=== PATIENT | male | born 1985 | race American Indian/Alaskan Native ===

== ENCOUNTER 2019-03-28 07:57 | Emergency (ER) | payer SELFPAY ==
[2019-03-28 08:14] VITALS: BP 106/74
--- NOTE | 2019-03-28 08:27 | XRay Report ---
Left wrist, 2 views INDICATION: Pain following injury yesterday FINDINGS: The joint space is maintained. There is no fracture or dislocation. No spurring or arthriti c change. No bone lesion or periostitis. No significant abnormality. IMPRESSION: Negative study Signer Name: Jason Rogel MD Signed: 03/28/2019 8:23 AM Workstation Name: [id number]
[2019-03-28] MEDS ORDERED: ROCEPHIN IM ONE (08:32)
[2019-03-28] MEDS ORDERED: ZITHROMAX PO ONE (08:32)
[2019-03-28] MEDS ORDERED: XYLOCAINE 1% MPF 5 mL INFILTRATI ONE (08:32)
--- NOTE | 2019-03-28 08:37 | Emergency Department Report ---
HPI - General Chief Complaint: Extremity Injury, Upper Time Seen by Provider: 03/28/19 08:15 - HPI HPI: 33-year-old -[place] male presents to the emergency department with 2 complaints. First, the patient fell on his left wrist yesterday while playing basketball. He has been having pain to the wrist and distal forearm. He used some ice and then ICY hot. He says that there is no restriction to range of motion but he has discomfort. He is right-hand dominant. Secondly, the patient has been having a few days of some penile discharge. He denies any burning with urination or fever or general lesions. He says that his significant other was positive for some type of "bacteria." ED Past Medical Hx - Past Medical History Previous Medical History?: No - Surgical History Past Surgical History?: No - Social History Smoking Status: Never Smoker Substance Use Type: None - Medications Home Medications: Home Medications Medication Instructions Recorded Confirmed Last Taken Type Ibuprofen [Motrin 800 MG tab] 800 mg PO Q8HR PRN #20 tablet 03/28/19 Unknown Rx ED Review of Systems ROS: Stated complaint: L WRIST/DISCHARGE Other details as noted in HPI Comment: All other systems reviewed and negative Constitutional: denies: chills, fever Gastrointestinal: denies: abdominal pain Genitourinary: discharge. denies: dysuria, testicular pain Musculoskeletal: arthralgia. denies: joint swelling Skin: denies: rash, lesions Neurological: denies: numbness, paresthesias Physical Exam - Physical Exam Vital Signs: Vital Signs 03/28/19 08:02 Temperature 97.7 F Pulse Rate 67 Respiratory 16 Rate Blood Pressure 106/74 O2 Sat by Pulse 98 Oximetry Physical Exam: GENERAL: The patient is well-developed well-nourished. HENT: Normocephalic. Atraumatic. Patient has moist mucous membranes. EYES: Extraocular motions are intact. NECK: Supple. Trachea is midline. ABDOMEN: There is no abdominal distention. SKIN: Skin is warm and dry. NEURO: The patient is awake, alert, and oriented. The patient is cooperative. The patient has no focal neurologic deficits. Normal speech. MUSCULOSKELETAL: There is some tenderness to palpation to the left wrist and distal forearm but no obvious deformity. There is no limitation range of motion. Radial pulse +2 over 4 to the affected left wrist. : Deferred ED Course Vital Signs 03/28/19 08:02 Temperature 97.7 F Pulse Rate 67 Respiratory 16 Rate Blood Pressure 106/74 O2 Sat by Pulse 98 Oximetry ED Medical Decision Making - Radiology Data Radiology results: image reviewed interpreted by me: X-ray of the left wrist does not show any fracture, dislocation or any acute process. - Medical Decision Making Regarding the patient's wrist pain, x-ray was done that does not show any fracture, dislocation, or any acute process. Will be placed in a wrist splint and given a referral for orthopedists. Regarding the penile discharge, there seems to be some exposure to some type of STD or bacterial infection and the patient has active discharge. He will be treated empirically with Rocephin and azithromycin. Discussed safe sex p ractices and avoiding any sexual contact for at least one week after treated. He will return to the emergency Department with any worsening of his symptoms or any acute distress. - Differential Diagnosis wrist fracture, wrist sprain, contusion, STD Critical Care Time: No Critical care attestation.: If time is entered above; I have spent that time in minutes in the direct care of this critically ill patient, excluding procedure time. ED Disposition Clinical Impression: Left wrist pain, Penile discharge Disposition: - TO HOME OR SELFCARE Is pt being admited?: No Condition: Stable Instructions: Sexually Transmitted Diseases (ED), Safe Sex (ED), Wrist Injury (ED) Additional Instructions: Please follow-up with a primary care physician. I am giving you a referral for a local orthopedist, Dr. Chawla, to follow up regarding your wrist pain. Please avoid any sexual activity for at least one week after getting the medications here today for empiric treatment of possible STD. Return to the emergency Department with any worsening of your symptoms or any acute distress. Prescriptions: Ibuprofen [Motrin 800 MG tab] 800 mg PO Q8HR PRN #20 tablet PRN Reason: Pain , Severe (7-10) Referrals: SUNIL CHAWLA MD [Staff Physician] - 2-3 Days [facility] [Outside] - 2-3 Days Time of Disposition: 08:43
== END 2019-03-28 09:26 | disposition home or self-care (01) ==
LOC: ED 07:57
DX: M25.532 Pain in left wrist (principal); R36.9 Urethral discharge, unspecified; Z79.899 Other long term (current) drug therapy
CPT/HCPCS: 29125; 73100; 96372; 99283; J0696

== ENCOUNTER 2019-06-27 19:16 | Emergency (ER) | payer OTHER ==
[2019-06-27 19:29] VITALS: BP 119/57
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
== END 2019-06-27 22:00 | disposition home or self-care (01) ==
LOC: ED 19:16
DX: S46.812A Strain of other muscles, fascia and tendons at shoulder and upper arm level, left arm, initial encounter (principal); S39.012A Strain of muscle, fascia and tendon of lower back, initial encounter; F17.200 Nicotine dependence, unspecified, uncomplicated; F12.10 Cannabis abuse, uncomplicated; V49.49XA Driver injured in collision with other motor vehicles in traffic accident, initial encounter; Y93.89 Activity, other specified; Y92.488 Other paved roadways as the place of occurrence of the external cause; Y99.8 Other external cause status
CPT/HCPCS: 99282